=== PATIENT | male | born 1985 | race African-American/Black ===

== ENCOUNTER 2017-12-13 10:13 | Emergency (ER) | payer OTHER ==
[~2017-12-13] VITALS: Ht 188 cm; Wt 141.1 kg
[~2017-12-13 10:13] MED LIST: COZAAR 25 MG TA25 M1 PO; MOBIC7.5 MG PO; NORCO 5-325 TA1 EACH PO
[2017-12-13] MEDS ORDERED: KEFLEX500 M1 PO (10:51)
[2017-12-13 11:22] VITALS: BP 161/89
== END 2017-12-13 11:24 | disposition home or self-care (01) ==
LOC: M.ERS 10:13
DX: L02.214 Cutaneous abscess of groin (principal); I10 Essential (primary) hypertension; E11.9 Type 2 diabetes mellitus without complications; G43.909 Migraine, unspecified, not intractable, without status migrainosus; F17.210 Nicotine dependence, cigarettes, uncomplicated

== ENCOUNTER 2018-01-01 03:07 | Emergency (ER) | payer OTHER ==
[~2018-01-01] VITALS: Ht 185.4 cm; Wt 122.9 kg
[~2018-01-01 03:07] MED LIST changes: +KEFLEX500 M1 PO
[2018-01-01 03:47] LABS: URINE BILIRUBIN NEGATIVE (Negative); URINE BLOOD 1+ (Negative); URINE CLARITY CLEAR; URINE COLOR STRAW; URINE GLUCOSE-RANDOM NEGATIVE (Negative); URINE KETONES NEGATIVE (Negative); URINE LEUKOCYTES-REFLEX NEGATIVE (Negative); URINE NITRITE-REFLEX NEGATIVE (Negative); URINE PROTEIN 2+ (Negative); URINE SPECIFIC GRAVITY <= 1.005 (1.005-1.030); URINE UROBILINOGEN 0.2 E.U./dl (0.2-1.0)
[2018-01-01 03:58] LABS: ABSOLUTE EOSINOPHILS 0.1 thou/uL (0.0-0.7); ABSOLUTE LYMPHOCYTES 1.9 thou/uL (0.8-5.3); ABSOLUTE MONOCYTES 0.7 thou/uL (0.0-1.2); ABSOLUTE NEUTROPHILS 7.8 thou/uL (1.6-8.1); BASOPHILS 0.3 %; EOSINOPHILS 1.3 %; HEMATOCRIT 45.2 % (42.0-52.0); HEMOGLOBIN 15.2 gm/dL (14.0-18.0); MCH 30.5 pg (26.0-34.0); MCHC 33.7 g/dL (28.0-37.0); MCV 90.4 fL (80.0-100.0); MPV 7.3 fl. (7.2-11.1); NUCLEATED RBCS 0 /100WBC; PLATELET COUNT* 223 thou/uL (150-400); POLYS 73.4 %; RDW-CV 14.7 % (10.5-14.5); WBC 10.7 thou/uL (4.0-11.0)
[2018-01-01 04:07] LABS: CALCIUM 9.7 mg/dL (8.5-10.1); CREATININE 1.7 mg/dL (0.6-1.3); POTASSIUM 3.4 mmol/L (3.5-5.1)
[2018-01-01 04:11] LABS: ALBUMIN 3.5 g/dL (3.4-5.0); TOTAL BILIRUBIN 0.4 mg/dL (<0.1-1.0); TOTAL PROTEIN 6.5 g/dL (6.4-8.2)
[2018-01-01 04:17] LABS: CRYSTALS None Seen /LPF (None Seen); HYALINE CASTS 0-3 Few /LPF (None Seen); MUCUS 0-3 Light strn/LPF (None Seen); SQUAMOUS 0-3 Few /LPF (0-3); URINE RBC 3-10 Few /HPF (0-2); URINE WBC-REFLEX 0-5 Rare /HPF (0-5)
[2018-01-01] MEDS ORDERED: CIPROFLOXACIN500 M1 PO (07:23)
[2018-01-01] MEDS ORDERED: PERCOCET 7.5-31 EACH PO (07:23)
[2018-01-01] MEDS ORDERED: BENTYL 10 MG CA10 M1 PO (07:23)
[2018-01-01 07:44] VITALS: BP 173/110
--- NOTE | 2018-01-01 14:49 | EKG ---
[place] [address] ELECTROCARDIOGRAM REPORT Name: NANCY VALDOVINOS JR Room: [facility]#: [id number] Admission: 01/01/18 Attend Phys: Discharge: 01/01/18 Date of : 81 Report #: [id number] THIS REPORT FOR: //name// [facility] ED Test Date: 2018-01-01 Test Time: 03:27:05 Pat Name: NANCY VALDOVINOS Department: Room: Gender: M Office Secretary: ROLANDO : 1985 Requested By: Nathaly Chiu Order Number: [id number] Reading MD: Bubba Amin Measurements Intervals [place] Rate: 78 P: 37 [place]: 159 QRS: 86 QRSD: 87 T: 22 QT: 363 QTc: 414 Interpretive Statements Sinus rhythm ST elev, probable normal early repol pattern Compared to ECG 09/20/2007 23:38:29 ST (T wave) deviation now present Right-axis deviation no longer present Electronically Signed On 01-01-2018 14:49:17 CDT by Bubba Amin [email or web address] <ELECTRONICALLY SIGNED> By: Bubba Amin MD, [facility] 01/01/18 [id number] Bubba Amin MD, [facility] /EPI
== END 2018-01-01 07:45 | disposition home or self-care (01) ==
LOC: M.ERS 03:07
PROVIDERS: Emergency Medicine
DX: R11.2 Nausea with vomiting, unspecified (principal); R19.7 Diarrhea, unspecified; I10 Essential (primary) hypertension; G43.909 Migraine, unspecified, not intractable, without status migrainosus; F17.200 Nicotine dependence, unspecified, uncomplicated